=== PATIENT | female | born 1985 | race Caucasian/White ===

== ENCOUNTER 2020-11-14 11:18 | Emergency (ER) | payer OTHER, MEDICAID, SELFPAY ==
[2020-11-14 11:32] VITALS: BP 123/82; PULSE 81; RESP 16; TEMP 37.1; O2SAT 100; BMI 29.7
--- NOTE | 2020-11-14 11:37 | ED.DENTAL ---
HPI - Dental/Oral General Chief complaint: Dental/Oral Stated complaint: dental pain Time Seen by Provider: 11/14/20 11:36 Source: patient Mode of arrival: ambulatory Limitations: no limitations History of Present Illness HPI Narrative: Left upper 2nd 3rd molar pain for past 2 days with slight facial swelling now. States known history of extensive dental caries is due for extraction given COVID-19 was delayed she has an appointment coming up for tomorrow but given the pain and swelling she came to emergency room as via by the dentist. Denies any fever or chills. MD Complaint: tooth pain Location: Tooth # (15) Onset (ago): day(s) Exacerbating factors: nothing Treatment prior to arrival: none Related Data Previous Rx's Medication Instructions Recorded ibuprofen 800 mg PO Q8H PRN #30 tab 11/14/20 penicillin V potassium 500 mg PO BID 10 Days #20 tab 11/14/20 Allergies Allergy/AdvReac Type Severity Reaction Status Date / Time acetaminophen [From PERCOCET] Allergy Intermediate NAUSEA & Unverified 07/21/20 17:03 VOMITING oxycodone [OXYCODONE] Allergy Unknown NAUSEA & Unverified 07/21/20 17:03 VOMITING From PERCOCET Allergy Intermediate NAUSEA & Uncoded 07/21/20 17:03 VOMITING Review of Systems Review of Systems: Constitutional: No Weight loss, No Fever, No Chills, No Night Sweats, No Fatigue, No Malaise ENT/Mouth: No Hearing loss, No Ear Pain, No Nasal Congestion, No Sinus Pain, No Hoarseness, No sore throat, No Rhinorrhea, No Swallowing Difficulty Eyes: No Eye Pain, No Swelling, No Redness, No Foreign Body, No Discharge, No Vision Changes Cardiovascular: No Chest Pain, No SOB, No Dyspnea on Exertion, No Orthopnea, No Edema, No Palpitations Respiratory: No Cough, No Sputum, No Wheezing, No Smoke Exposure, No Dyspnea Gastrointestinal: No abd pain Genitourinary: no irregular bleeding, No Dysuria, No Urinary Frequency, No Hematuria, No Urinary Incontinence Musculoskeletal: No joint pain, No Myalgias, No Joint Swelling Skin: No Skin Lesions, No rash Neuro: No Weakness, No Numbness, No Paresthesias, No Loss of Consciousness, No Dizziness, No Headache Psych: No Social Issues Heme/Lymph: No Bruising, No Bleeding,No Lymphadenopathy Endocrine: No Polyuria, No Polydipsia, No Temperature Intolerance Yes all other systems are reviewed and are negative [facility] Past Medical History Surgical History (Updated 11/14/20 @ 11:38 by Gail Gordon) Hx of tonsillectomy S/P dilatation and curettage Physical Exam Vital Signs: Vital Signs: Last Vital Signs Temp 98.8 F 11/14/20 11:32 Pulse 81 11/14/20 11:32 Resp 16 11/14/20 11:32 BP 123/82 11/14/20 11:32 Pulse Ox 100 11/14/20 11:32 Body Mass Index 29.7 Reviewed Const: General: cooperative and healthy appearing; No acute distress or intoxicated appearing Nutritional Appearance: average body habitus Orientation/consciousness: patient oriented x3 HENMT: Other: Extensive decay to the 14./15. Almost fully decayed. Very slight swelling to the left side of the cheek. No evidence of abscess. Head: Yes normal to inspection Ears: hearing grossly normal bilaterally Eyes: General: appearance normal, both eyes and all related structures Visual Morris: normal visual morris by confrontation Neck: Neck: Yes normal visual inspection, No positive Brudzinski's sign, No positive Kernig's sign and No tender Thyroid: Thyroid normal Resp: Effort & Inspection: normal respiratory effort Cardio: Jugular venous distension: no JVD Neuro: General: patient oriented x3 Discharge Plan Discharge Clinical Impression: Pain, dental Patient Disposition: Home, Self-Care Instructions: Toothache (ED) Additional Instructions: Take medication prescribed Follow-up with Dental as instructed Return if any concerns worsening symptoms Thank you Prescriptions: New penicillin V potassium 500 mg tablet 500 mg PO BID 10 Days Qty: 20 RF: 0 ibuprofen 800 mg tablet 800 mg PO Q8H PRN (Reason: pain) Qty: 30 RF: 0 Referrals: ED Physician,Generic [Emergency Provider] - 2 days (Dental )
== END 2020-11-14 11:58 | disposition home or self-care (01) ==
LOC: HO.ED 11:55
PROVIDERS: Emergency Provider Emergency Medicine; PCP Internal Medicine
DX: K08.89 Other specified disorders of teeth and supporting structures (principal); K02.9 Dental caries, unspecified
CPT/HCPCS: 99283